=== PATIENT | male | born 1965 | race Caucasian/White ===

== ENCOUNTER 2016-10-10 12:41 | Emergency (ER) | payer OTHER ==
[~2016-10-10] VITALS: Ht 177.8 cm; Wt 79.4 kg
--- NOTE | 2016-10-10 12:50 | PHYS DOC ---
Adult General Chief Complaint Chief Complaint: NAUSEA/VOMITING/DIARRHA HPI HPI Patient is a 51 year old male who presents with uncontrolled nausea vomiting the last 4 days. States it started Saturday when he started vomiting nonbilious nonbloody vomit and has milky anything down since then. He has had a bowel movement and has been passing gas. He denies any abdominal pain but states every time he tries to eat or drink he vomits it up. He states he's had this occur every 6-8 months for couple days since he's had his Whipple approximately 10 years ago but is a first-time is one on this much. Review of Systems Review of Systems Constitutional: Denies fever or chills [] Eyes: Denies change in visual acuity, redness, or eye pain [] HENT: Denies nasal congestion or sore throat [] Respiratory: Denies cough or shortness of breath [] Cardiovascular: No additional information not addressed in HPI [] GI: Denies abdominal pain, bloody stools or diarrhea, positive for nausea vomiting : Denies dysuria or hematuria [] Musculoskeletal: Denies back pain or joint pain [] Integument: Denies rash or skin lesions [] Neurologic: Denies headache, focal weakness or sensory changes [] Endocrine: Denies polyuria or polydipsia [] Current Medications Current Medications Current Medications Medications (Trade) Dose Ordered Sig/Allie Start Time Stop Time Status Last Admin Dose Admin Ondansetron HCl (Zofran) 4 mg 1X ONCE 10/10/16 14:15 10/10/16 14:16 DC 10/10/16 14:15 4 MG Sodium Chloride (Iv Sodium Chloride 0.9% 1000ml Bag) 1,000 ml @ 1,000 mls/hr 1X ONCE 10/10/16 14:15 10/10/16 15:14 Allergies Allergies Allergies Coded Allergies Type Severity Reaction Last Updated Verified No Known Drug Allergies 10/10/16 No Physical Exam Physical Exam Constitutional: Well developed, well nourished, no acute distress, non-toxic appearance. [] HENT: Normocephalic, atraumatic, bilateral external ears normal, oropharynx moist, no oral exudates, nose normal. [] Eyes: PERRLA, EOMI, conjunctiva normal, no discharge. [] Neck: Normal range of motion, no tenderness, supple, no stridor. [] Cardiovascular:Heart rate regular rhythm, no murmur [] Lungs & Thorax: Bilateral breath sounds clear to auscultation [] Abdomen: Bowel sounds normal, soft, mildly tenderness to palpation around the umbilicus, well-healed midline scar, no masses, no pulsatile masses. [] Skin: Warm, dry, no erythema, no rash. [] Back: No tenderness, no CVA tenderness. [] Extremities: No tenderness, no cyanosis, no clubbing, ROM intact, no edema. [] Neurologic: Alert and oriented X 3, normal motor function, normal sensory function, no focal deficits noted. [] Psychologic: Affect normal, judgement normal, mood normal. [] Current Patient Data Vital Signs Vital Signs Date Time Temp Pulse Resp B/P Pulse Ox O2 Delivery O2 Flow Rate FiO2 10/10/16 12:47 97.4 86 20 140/93 95 Room Air 97.4 EKG EKG [] Radiology/Procedures Radiology/Procedures [facility] [address] [place] [address] IMAGING REPORT Signed PATIENT: RADHA APPIAH ACCOUNT: [id number] : 1965 LOCATION: ER AGE: 51 SEX: M EXAM STATUS: PRE ER ORD. PHYSICIAN: JUAN HAMPTON MD REASON: chest pain PROCEDURE: PORTABLE CHEST 1V Portable chest, 10/10/2016: History: Chest pain and vomiting The heart size and pulmonary vascularity are normal. The lungs are clear. There is no evidence of pleural fluid. Mild spurring is present in the lower thoracic spine. IMPRESSION: No acute cardiopulmonary abnormality is detected. DICTATED and SIGNED BY: ALENA SANDERS MD DATE: 10/10/16 1326 CC: JUAN HAMPTON MD ~ Course & Med Decision Making Course & Med Decision Making Pertinent Labs and Imaging studies reviewed. (See chart for details) Patient is being checked out to Dr. Cole, CT abdomen and pelvis is pending at this time. Dragon Disclaimer Dragon Disclaimer This electronic medical record was generated, in whole or in part, using a voice recognition dictation system. JUAN HAMPTON MD Oct 10, 2016 12:50
--- NOTE | 2016-10-10 13:29 | RAD ---
Portable chest, 10/10/2016: History: Chest pain and vomiting The heart size and pulmonary vascularity are normal. The lungs are clear. There is no evidence of pleural fluid. Mild spurring is present in the lower thoracic spine. IMPRESSION: No acute cardiopulmonary abnormality is detected.
--- NOTE | 2016-10-10 13:57 | EKG ---
[facility] [address] [place] [address] Test Date: 2016-10-10 Test Time: 13:30:55 Pat Name: RADHA APPIAH Department: Room: Gender: M Broadcast Transmitter Operator: : 1965 Requested By: JUAN HAMPTON Order Number: [id number] Reading MD: Arina Sierra Measurements Intervals [place] Rate: 85 P: -43 MA: 114 QRS: 27 QRSD: 78 T: 51 QT: 356 QTc: 424 Interpretive Statements SINUS RHYTHM NORMAL ELECTROCARDIOGRAM Electronically Signed On 10-13-2016 19:48:33 CDT by Arina Sierra
[2016-10-10] MEDS ORDERED: ONDANSETRON PF 4 MG/2 ML VIAL. IV ONE (14:15)
[2016-10-10] MEDS ORDERED: IV NORMAL SALINE 1000ML BAG 1,000 ML IV ONE ×2 (14:15)
[2016-10-10 14:57] VITALS: BP 120/67
[2016-10-10 15:04] LABS: BASO % 1 % (0-3); EOS % 1 % (0-3); HEMATOCRIT 60.5 % (39.0-53.0); HEMOGLOBIN 20.6 g/dL (13.0-17.5); LYMPH # 1.7 x10^3/uL (1.0-4.8); LYMPH % 19 % (24-48); MEAN CORPUSCULAR HEMOGLOBIN 33 pg (25-35); MEAN CORPUSCULAR HGB CONC 34 g/dL (31-37); MEAN CORPUSCULAR VOLUME 97 fL (79-100); MONO % 12 % (0-9); NEUT % 67 % (31-73); PLATELET COUNT 185 x10^3/uL (140-400); RED BLOOD COUNT 6.23 x10^6/uL (4.30-5.70); RED CELL DISTRIBUTION WIDTH 13.2 % (11.5-14.5); WHITE BLOOD COUNT 8.7 x10^3/uL (4.0-11.0)
[2016-10-10 15:11] LABS: INR 1.1 (0.8-1.1); PROTHROMBIN TIME PATIENT 13.1 SEC (11.7-14.0)
[2016-10-10 15:26] LABS: ALBUMIN 4.4 g/dL (3.4-5.0); CALCIUM 9.7 mg/dL (8.5-10.1); TOTAL PROTEIN 8.9 g/dL (6.4-8.2)
[2016-10-10 15:27] LABS: CREATININE 1.6 mg/dL (0.7-1.3); DIRECT BILIRUBIN 0.2 mg/dL (0.0-0.2); GFR 45.8; TOTAL BILIRUBIN 1.4 mg/dL (0.2-1.0)
[2016-10-10 15:38] LABS: CKMB INDEX 0.4 % (0-4); CKMB MASS 1.7 ng/mL (0.0-3.6)
[2016-10-10 15:41] LABS: POTASSIUM 3.9 mmol/L (3.5-5.1)
--- NOTE | 2016-10-10 16:19 | RAD ---
Indication: Intractable vomiting for one week with pancreatic cancer. Technique: Axial images and coronal and sagittal reformatted images are provided. Oral contrast was administered. There are no prior studies at this institution. One or more of the following individualized dose reduction techniques were utilized for this examination: 1. Automated exposure control 2. Adjustment of the mA and/or kV according to patient size 3. Use of iterative reconstruction technique Findings: There is minimal atelectasis in the lung bases. There is no pleural effusion. Heart is not enlarged. There is fatty infiltration of the liver. Gallbladder is absent. Spleen is not enlarged. Pancreatic body and head appear to have been resected. Pancreatic tail remains, some fullness of the tail. Mass involving the tail cannot be excluded, 3.2 x 2.2 cm in size. Comparison to outside priors would be of benefit in this patient. There is no urolithiasis. There is mild atheromatous disease in the abdominal aorta without aneurysm. There is no small bowel obstruction or mural thickening. Normal appendix is noted. Colon is grossly unremarkable. Bladder is unremarkable. Prostate is not enlarged. There are mild degenerative changes in the spine. Impression: 1. Apparent partial resection of the pancreas with the head and body of pancreas not visualized. Possible pancreatic tail lesion, comparison to outside priors would be of benefit. 2. Fatty infiltration of the liver.
[2016-10-10] MEDS ORDERED: ONDA4TAB12 PO (16:27)
[2016-10-10 16:55] LABS: BILIRUBIN,URINE MODERATE (NEG); GLUCOSE,URINE >=1000 mg/dL (NEG); NITRITE,URINE NEGATIVE (NEG); PH,URINE 5.5; PROTEIN,URINE NEGATIVE (NEG-TRACE)
[2016-10-10 17:07] LABS: BACTERIA,URINE 0 /HPF (0-FEW); RBC,URINE 0 /HPF (0-2); WBC,URINE 0 /HPF (0-4)
== END 2016-10-10 16:40 | disposition home or self-care (01) ==
LOC: ER 12:41
DX: R11.2 Nausea with vomiting, unspecified (principal); R10.33 Periumbilical pain
CPT/HCPCS: 36415; 71010; 74176; 80048; 80076; 81001; 82553; 83690; 84484; 85027; 85610; 85730; 93005; 96361; 96374; 99285; J2405; J7030

== ENCOUNTER → 2016-10-12 | Outpatient (CLI) | payer OTHER ==
[2016-10-10 14:57] VITALS: BP 120/67
[~2016-10-12] MED LIST: ONDA4TAB12 PO
--- NOTE | 2016-10-12 13:02 | RAD ---
MRCP, 10/12/2016: History: Abnormal CT scanning, previous pancreatic cancer Imaging was performed in axial and coronal planes utilizing a variety of sequences including T2 weighted, fat suppressed T2 weighted and opposed phase gradient echo sequences. Heavily T2 weighted MRCP sequences were obtained with and without respiratory gating with 3-D MIP reconstructions produced. By history there has been previous Whipple procedure with resection of the pancreatic head and body. The bile ducts are small and poorly delineated,. The insertion of the common duct into the small bowel is not clearly delineated. There is no evidence of biliary ductal dilatation. There is an elongated cystic structure within the remaining pancreatic tail. The appearance is that of a dilated pancreatic duct measuring nearly 1 cm in greatest width. This segment of dilated pancreatic duct measures at least 5 cm in length. No definite solid mass is seen. The liver demonstrates abnormal signal intensity compatible with diffuse fatty change. No hepatic mass is evident. IMPRESSION: 1. Previous partial pancreatectomy and Whipple surgery. 2. No evidence of biliary ductal obstruction. 3. Dilated pancreatic duct in the remaining pancreatic tail likely on a postsurgical basis. No definite solid component or mural irregularity is seen to suggest IPMN(intraductal papillary mucinous neoplasm). MR follow-up with gadolinium utilizing a pancreatic protocol may be useful for confirmation. 4. Hepatic steatosis.
== END | disposition home or self-care (01) ==
LOC: MRI 10:29
PROVIDERS: ATTEND Internal Medicine Gastroenterology
DX: C25.9 Malignant neoplasm of pancreas, unspecified (principal); K76.0 Fatty (change of) liver, not elsewhere classified
CPT/HCPCS: 74181

== ENCOUNTER → 2016-10-15 | Outpatient (CLI) | payer OTHER ==
[2016-10-10 14:57] VITALS: BP 120/67
[~2016-10-15] MED LIST changes: +BARIUM SULFATE 340 GM SUSPENSION. PO ONE; +BARIUM SULFATE 60% 355 ML SUSP PO ONE; +BARIUM SULFATE 96% 397 GM ENEMA. PR ONE; +SIMETHICONE/SOD BICARB/CITRIC ACID PACKET. PO ONE
--- NOTE | 2016-10-15 11:53 | RAD ---
Double contrast upper GI with small bowel follow-through, 10/15/2016: History: Nausea and vomiting The study was performed utilizing high density barium and gas-forming crystals followed by regular liquid barium. 3.2 minutes of fluoroscopy time was utilized. 18 static and dynamic fluoroscopic images were recorded. The preliminary abdominal image demonstrates a moderate amount of stool in the colon. The abdominal gas pattern is otherwise unremarkable. The swallowing mechanism is intact. The esophageal peristalsis is normal. No hiatal hernia or gastroesophageal reflux was demonstrated. There has been previous Whipple surgery. There is prompt flow of contrast from the stomach into the small bowel. No gastric mass is identified. The small bowel loops are of normal caliber. No significant fold thickening is seen. Contrast reached the colon at 90 minutes. The terminal ileum cannot be clearly from other loops of distal small bowel, however, no abnormality was detected. IMPRESSION: 1. Status post Whipple surgery. 2. No other significant abnormality is detected.
== END | disposition home or self-care (01) ==
LOC: RAD 08:11
PROVIDERS: ATTEND Internal Medicine Gastroenterology
DX: R11.2 Nausea with vomiting, unspecified (principal)
CPT/HCPCS: 74245

== ENCOUNTER → 2017-03-04 | Outpatient (CLI) | payer OTHER ==
[~2017-03-04] MED LIST changes: -BARIUM SULFATE 340 GM SUSPENSION. PO ONE; -BARIUM SULFATE 60% 355 ML SUSP PO ONE; -BARIUM SULFATE 96% 397 GM ENEMA. PR ONE; -SIMETHICONE/SOD BICARB/CITRIC ACID PACKET. PO ONE
--- NOTE | 2017-03-04 13:03 | RAD ---
Gastric imaging study. 03/04/2017 Indication: Nausea and vomiting times a days. Partial pancreatectomy as part of Whipple procedure 10 years ago Discussion: Imaging over the abdomen was performed following the administration of 2.1mci 99mTc Sulfur colloid in a solid meal. Over an approximately 1 hour time. No significant/measurable emptying of the stomach was identified. Gastric morphology is consistent with partial gastrectomy, which would be consistent with the Whipple procedure. Calculated gastric emptying half time is approximately 754 min which is markedly elevated. Impression : Severely delayed gastric emptying.
== END | disposition home or self-care (01) ==
LOC: NM 07:49
PROVIDERS: ATTEND Internal Medicine Gastroenterology
DX: R11.2 Nausea with vomiting, unspecified (principal); Z90.3 Acquired absence of stomach [part of]; Z90.411 Acquired partial absence of pancreas
CPT/HCPCS: 78264; A9541

== ENCOUNTER → 2020-09-12 | Outpatient (CLI) | payer OTHER ==
[~2020-09-12] MED LIST changes: +IOHEXOL 240 MG/ML 50ML VIAL. PO ONE; +IOHEXOL 300 MG/ML 100ML VIAL. IV ONE
--- NOTE | 2020-09-12 12:54 | KCIC ---
EXAM: CT Abdomen and Pelvis with IV contrast INDICATION: Reason: Nausea, vomiting, weight loss, hx pancreatic cancer. / Spl. Instructions: 100mL O mni 300 / History: Whipple 14 yrs ago, RUQ pain, loss of 10-15 lbs in 2 wks. TECHNIQUE: Multi-detector row CT images were acquired from the lung bases through the abdomen and pel vis with the use of IV contrast. Sagittal and coronal images were acquired from the transaxial data. All CT scans performed at this facility utilize dose optimization techniques as appropriate to the ex am, including the following: Automated exposure control and adjustment of the mA and/or KV according to patient size (this includes techniques or standardized protocols for targeted exams where dose is indication/reason for exam). IV CONTRAST: Administered ORAL CONTRAST: Administered COMPARISON: CT abd pelvis of 10/10/16 with oral contrast FINDINGS: LOWER CHEST: Unremarkable LIVER: Diffuse hepatic steatosis. No masses or nodular contour BILIARY SYSTEM: Gallbladder is absent. No biliary dilation is apparent. Bile ducts are not dilated. PANCREAS: Surgical changes from previous pancreatic head and body resection with apparent anastomosi s with the gastric body along the greater curvature is evident. There is better illustrated, dilation of the main pancreatic duct in the pancreatic tail to a 1.1 cm in diameter after which, there is tap ered narrowing of the pancreatic duct in the more distal pancreas. This is similar to the appearance previously but better illustrated on postcontrast imaging. SPLEEN: Unremarkable ADRENALS: Unremarkable KIDNEYS & URETERS: Unremarkable BLADDER: Unremarkable REPRODUCTIVE ORGANS: Unremarkable GASTROINTESTINAL: Surgical changes compatible with previous choledochojejunostomy are evident. There is a loop of small bowel at the ivan hepatis that does not opacify with enteric contrast (axial imag e 23 of series 2). It appears borderline dilated. Otherwise, no findings of bowel obstruction, perforation or acute infl ammation. Normal appendix. MESENTERY/PERITONEUM/RETROPERITONEUM: Unremarkable VASCULAR: Unremarkable LYMPH NODES: No adenopathy OSSEOUS & SOFT TISSUES: Fat-containing right inguinal hernia. No acute or aggressive osseous lesions . IMPRESSION: 1. Postsurgical changes from partial pancreatectomy with dilation of the proximal pancreatic duct in the tail and distal narrowing. Given lack of change in morphology of the pancreas in the interval, th is could reflect an inflammatory stricture. There are no findings suspicious for local pancreatic can cer recurrence or of metastatic disease. 2. Loop of small bowel in the ivan hepatis could reflect the patient's choledochojejunostomy but it is borderline dilated and fluid-filled. Correlation with a small bowel follow-through to assess for o bstruction or internal hernia could be helpful. 3. Persistent diffuse hepatic steatosis. Electronically signed by: Franchesca Powers MD (09/12/2020 12:51 PM) [id number]
== END ==
LOC: KCIC CT 08:27
PROVIDERS: ATTEND Internal Medicine Gastroenterology
DX: K76.0 Fatty (change of) liver, not elsewhere classified (principal); R63.4 Abnormal weight loss; Z85.07 Personal history of malignant neoplasm of pancreas
CPT/HCPCS: 74177; 82565; Q9966; Q9967

== ENCOUNTER → 2020-12-15 | Outpatient (CLI) | payer OTHER ==
[~2020-12-15] MED LIST changes: -IOHEXOL 240 MG/ML 50ML VIAL. PO ONE; -IOHEXOL 300 MG/ML 100ML VIAL. IV ONE
--- NOTE | 2020-12-15 16:31 | KCIC ---
Study: DG UPPER GI SERIES AND SMALL BOWEL_WITHOUT AIR CONTRAST Indication: Nausea and vomiting for the past 6-7 months. History of a Whipple procedure 14 years prio r. Comparison: CT abdomen/pelvis 09/12/2020; upper GI with small bowel follow-through 10/15/2016 Findings: Fluoroscopy time: 62 seconds Fluoroscopic images: 23 Thick and thin barium was ingested by mouth with the patient upright as well as supine/prone. Real ti me fluoroscopy with obtainment of intermittent spot films of the esophagus, stomach and duodenum. Rad iographs were then obtained at 30 minute intervals until contrast approached the colon with subsequen t paddle compression of the small bowel. No esophageal stricture or fluoroscopic evidence for an ulceration or mass. Reflux occurred during th e exam and there was diminished esophageal motility with delayed clearance of contrast from the esoph patel into the stomach in between swallows. No significant hiatal hernia. The adequately assessed ranjan gail folds are normal in thickness. No gastric ulcer or discrete mass. Sequela of a Whipple procedure with the duodenal-jejunal junction at the right upper quadrant. No abnormality seen throughout the sm all bowel. Note is made that there was delayed transit of contrast from the stomach into the duodenum and it too k two hours for contrast to reach the colon. Impression: 1. Gastroesophageal reflux was observed. Diminished primary stripping wave of the esophagus could rep resent a manifestation of chronic reflux. No stricture or fluoroscopic evidence for an ulcer or mass. 2. Delayed emptying of contrast into the duodenum and slow progression of contrast from the small bow el into the colon. Noting the insensitivity of this exam gastroparesis is a consideration. 3. Sequela of a Whipple procedure. Normal caliber of the small bowel and spacing/thickness of the sma ll bowel mucosal folds. Electronically signed by: DEON BROWN MD (12/15/2020 4:29 PM) [id number]
== END ==
LOC: KCIC 08:35
PROVIDERS: ATTEND Internal Medicine Gastroenterology
DX: R11.2 Nausea with vomiting, unspecified (principal); K21.9 Gastro-esophageal reflux disease without esophagitis; Z90.411 Acquired partial absence of pancreas
CPT/HCPCS: 74248